=== PATIENT | male | born 1980 | race Caucasian/White ===

== ENCOUNTER 2021-11-08 17:56 | Emergency (ER) | payer OTHER ==
[2021-11-08] MEDS ORDERED: NORCO 5-325 TA1 EACH PO (22:50)
== END 2021-11-08 23:59 | disposition home or self-care (01) ==
LOC: FER 17:56
DX: S20.212A Contusion of left front wall of thorax, initial encounter (principal); M54.50 Low back pain, unspecified; Z88.0 Allergy status to penicillin; W17.89XA Other fall from one level to another, initial encounter; Y92.009 Unspecified place in unspecified non-institutional (private) residence as the place of occurrence of the external cause; Z28.310 Unvaccinated for COVID-19
CPT/HCPCS: 71260; 72131; J2270; J2405; J7030; Q9967